=== PATIENT | female | born 1930 | race African-American/Black ===

== ENCOUNTER → 2016-07-19 | Outpatient (CLI) | payer MEDICARE, OTHER ==
[2014-05-02 11:41] VITALS: BP 173/90
[~2016-07-19] MED LIST: ACET1TAB29 PO; ALEN70TA5 PO; ASPI-482 PO; ATOR40TA59 PO; CARV3.122 PO; CHOL100013 PO; HYDR-971 PO; IOHEXOL 180 MG/ML 10 ML VIAL. ONE; LISI-334 PO; LORA10TA68 PO; MULT-658 PO; OMEG1CAP38 PO; methylPREDNISolone ACETATE 40 MG/ML VIAL. ONE; methylPREDNISolone ACETATE 80 MG/ML VIAL. ONE
--- NOTE | 2016-07-20 05:35 | PAIN ---
DATE OF SERVICE: 07/19/2016 INITIAL CONSULTATION CHIEF COMPLAINT: Low back and bilateral lower extremity pain. HISTORY OF PRESENT ILLNESS: This is an 85-year-old female who presents with history of pain since 1965, worse over the past 2 months, however. The patient reports in 1965 she fell in a bathtub and broke her pelvis, which was never completely treated appropriately and has caused pain with her for about 51 years now. The patient reports that over the past 2 months, however, she has had increased pain in the low back, bilateral lower extremities, mostly in the lateral posterior aspect of the gluteus, thighs and lower legs into the calves laterally and anteriorly as well as the anterior and medial thighs and onto the medial lower legs as well as below the knees. The patient reports it is somewhat worse on the right than the left, but present bilaterally and is constant, sharp, stabbing, throbbing and shooting. Tingling and numbness in the legs as well. Again, worse on the right than the left. Hard to get up out of a sitting position, worse in the morning, severe pain, better with medications. The patient has been taking hydrocodone about every 4-5 hours, which has been helping to a moderate extent, about 50% actually to decrease her pain. The patient reports no loss of motor function, but significant fatigability in the lower extremities, especially on the right side with activity. The patient reports she does better with sitting or lying down. It does not awaken her from sleep at night. She is sleeping well through the night. It does not affect her bowel or bladder control, but it does affect her ability to walk. She occasionally uses a walker, which she keeps at home generally when she is just getting out of bed in the morning, but she does not keep it with her the rest of the day and does not have one with her on her presentation today. The patient has had physical therapy as well as chiropractic treatment and doing exercise currently, all of which helped to a moderate extent and keeps her back mobile to a moderate degree. The patient reports disability rating from 0 to 10, 10 being the worst, as a 7 with family and home responsibilities, 3 with recreation and social activities, 6 with self-care and life support activities. PAST MEDICAL HISTORY: Significant for arthritis, hypertension, cataracts. PAST SURGICAL HISTORY: Previous surgeries include cataract extraction, ganglion cyst excision in both wrists and previous hysterectomy. CURRENT MEDICATIONS: Include hydrocodone, omega fish oil, vitamins, carvedilol, atorvastatin, lisinopril, Claritin, Centrum Silver, alendronate, daily baby aspirin, Coricidin. ALLERGIES: The patient has no known drug allergies. FAMILY HISTORY: Significant for no major medical problems or conditions that she is aware of. SOCIAL HISTORY: The patient does not smoke, does not use alcohol or caffeine. 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 REVIEW OF SYSTEMS: The patient's review of systems is positive for those items mentioned in the history of present illness. It is complete, full and well documented on the patient's chart. IMAGING STUDIES: The patient did have MRI scan of the lumbar spine, showing grade 1 approaching grade 2 anterior spondylolisthesis at L4-L5 and grade 1 anterior spondylolisthesis at L5-S1, severe spinal stenosis just below the L4-L5 intervertebral disc space with lateral recess stenosis bilaterally, severe bilateral L4-L5 neural foraminal compromise, multilevel lumbar facet degenerative changes. PHYSICAL EXAMINATION: VITAL SIGNS: Today, the patient's blood pressure is 147/105, pulse 83, respirations 18, temperature 97.7 degrees Fahrenheit, weight is 168 pounds, height is 4 feet 11 inches. GENERAL: The patient is awake, alert, oriented, appropriate, has very pleasant demeanor. HEENT: Shows normocephalic and atraumatic. Extraocular movements are intact and symmetrical. Oral cavity: Mucous membranes are moist and pink. Dentition is intact. NECK: Shows anterior throat supple without palpable lymphadenopathy noted. Swallow reflex is symmetrical. Neck shows good rotational motion both laterally greater than 45 degrees right and left as well as full extension and full forward flexion without significant difficulty or pain reported. CHEST: Shows normal on inspection. Breath sounds are clear to auscultation bilaterally. HEART: Shows S1 and S2 clear. No murmurs auscultated. ABDOMEN: Shows soft, obese, nontender, nondistended. No palpable organomegaly is noted. No rebound or guarding demonstrated. BACK: Shows spine grossly midline. Slight exaggeration of thoracic kyphosis, normal cervical lordotic curvature and normal lumbar lordotic curvature noted as well. With inspection, lumbar paraspinous musculature is symmetrical without evidence of atrophy or hypertrophy. On palpation, has normal muscle girth, firm but tender throughout the upper, middle and lower distribution of paraspinous muscles only diffusely, mostly in the lower distribution, slightly more tender than the upper or middle, but without radiation. No tenderness over the spinous processes. No tenderness over the sacrum or sacroiliac regions. The patient shows good rotational motion of the lumbar spine, both laterally, greater than 10 degrees right and left as well as extension greater than 10 degrees, forward flexion at 45 degrees without exacerbation of pain. EXTREMITIES: The patient's lower extremities showed deep tendon reflexes at 1+ in the patellar and tendo calcaneus tendons are equal. Motor exam is approximately 4 on a scale of 5, but is symmetrical with dorsiflexion, extension, quadriceps and hamstring flexion. The patient's peripheral pulses are 1+, posterior tibial and dorsalis pedis pulses. No peripheral edema is noted. No clubbing. No cyanosis. Lower extremities are warm and dry to touch, equal in color and appearance. Straight leg raising noted to be positive bilaterally at about 30-35 degrees with significant pain into the lateral and posterior aspect of the thigh as well as some in the anterior thigh on the right side, which is decreased but not relieved with knee flexion at this level. Gaenslen's and Rikki's maneuvers are grossly negative bilaterally with some minor pain reported with right external rotation of the hips, but only in the low back and not into the leg itself; left side is negative. The patient is able to stand but is very slow getting from a sitting to a standing position on her own. Again, she is not walking with any assistive devices, has a shuffling gait, not using any canes or walkers to ambulate, but requires a hand to hold while walking and holds onto the wall while she is walking in the hallway. IMPRESSION: 1. This is an 85-year-old female with long history of low back pain and bilateral lower extremity pain, worse over the past 2 months or so. 2. MRI scan as noted. 3. History of hypertension. 4. Arthritis. PLAN: Options were discussed with the patient including conservative medical management, physical therapy and interventional techniques. She would like to pursue interventional techniques. She is currently doing some therapy and exercises on her own. We discussed a lumbar epidural steroid injection using description as well as anatomical models to describe the procedure. Risks were then discussed including but not limited to bleeding, infection, possibility of epidural hematoma, subsequent neurologic compromise, dural punctures, headaches, spinal cord and/or nerve damage, side effects of steroid medication and poor results regarding pain control. The patient understands and wishes to proceed. The patient will return to clinic in approximately 2 weeks for followup. She was counseled on return appointment, activity level and side effects to be aware of. DIAGNOSES: Lumbar radiculopathy with lumbar degenerative disc disease and lumbar spinal stenosis. PROCEDURE: Lumbar epidural steroid injection in translaminar approach at the L4-L5 level using C-arm fluoroscopic guidance under sterile prep and drape using local anesthetic. MEDICATIONS INJECTED: Depo-Medrol 120 mg plus 10 mL of preservative-free normal saline and 2 mL Isovue for contrast. CONDITION AT DISCHARGE: Stable. The patient tolerated procedure well, had no complications. LORRAINE COTTO MD DR: TEODORA/nts JOB#: [id number] / [id number] ALICE Carpio MD
== END | disposition home or self-care (01) ==
LOC: PNCL 10:27
PROVIDERS: ATTEND Anesthesiology
DX: M51.16 Intervertebral disc disorders with radiculopathy, lumbar region (principal); M48.06 Spinal stenosis, lumbar region; M19.90 Unspecified osteoarthritis, unspecified site; I10 Essential (primary) hypertension
CPT/HCPCS: 62323; J1030; J1040

== ENCOUNTER → 2016-08-06 | Outpatient (CLI) | payer MEDICARE, OTHER ==
[2014-05-02 11:41] VITALS: BP 173/90
[~2016-08-06] MED LIST changes: -IOHEXOL 180 MG/ML 10 ML VIAL. ONE; -methylPREDNISolone ACETATE 40 MG/ML VIAL. ONE; -methylPREDNISolone ACETATE 80 MG/ML VIAL. ONE
--- NOTE | 2016-08-07 00:01 | PN ---
DATE: 08/06/2016 PROGRESS NOTE FOR PAIN CLINIC DIAGNOSES: Lumbar radiculopathy, lumbar degenerative disk disease and lumbar spinal stenosis. HISTORY OF PRESENT ILLNESS: The patient an 85-year-old female who returns for followup status post lumbar epidural steroid injection x 1. The patient reports near 100% improvement in her low back and bilateral lower extremities. The patient is very pleased with her progress. She is essentially pain free except for her right leg with some stiffness in the back of the leg only in the mornings and reports there is not pain ____ ache. The patient reports the pain as 0 on a scale of 10. Reports no new motor or sensory deficits, no new bowel or bladder incontinence or other complaints. She is very pleased with her activity toleration and very pleased with her response at this time. PHYSICAL EXAMINATION: VITAL SIGNS: Shows blood pressure 158/78, pulse 79, respirations 18, temperature 98.2 degrees Fahrenheit, height is 4 feet 11 inches, weight 167 pounds. GENERAL: The patient is awake, alert, oriented, appropriate, very pleasant demeanor. The patient accompanied by her son. HEENT: Shows normocephalic, atraumatic. Extraocular movements are intact and symmetrical. Oral cavity shows mucous membranes moist and pink. Dentition is intact. NECK: Shows anterior throat supple without palpable lymphadenopathy noted. Swallow reflex is symmetrical. Neck shows full rotational motion of the cervical spine without difficulty. CHEST: Shows normal on inspection. Breath sounds are clear to auscultation bilaterally. HEART: Shows S1 and S2 clear. ABDOMEN: Soft, nontender, nondistended. No palpable organomegaly. No rebound or guarding demonstrated. BACK: Shows spine grossly midline. Lumbar paraspinous musculature shows some mild tenderness with palpation, but only with diffuse palpation bilaterally in the lumbar distribution inferiorly without radiation, without asymmetry. The patient shows good rotation and motion of the lumbar spine, both laterally as well as extension and flexion without difficulty. EXTREMITIES: Lower extremities showed deep tendon reflexes 1+/4 in the patellar tendons. Motor exam is approximately 4 on a scale of 5, but equal and symmetrical with dorsiflexion, extension, quadriceps and hamstring flexion bilaterally. The patient is able to stand from a sitting position without any assistance today, uses ____ arm on the chair when getting up to support herself, very different from previous exam. Options were discussed with the patient. At this time, the patient's old chart was reviewed as her current medication regimen updated. Current review of systems updated today as well and we will hold on any further injections. The patient is doing much better. She would like to wait on any further injections. The patient was counseled as to activity levels as well as side effects to be aware of, will increase activity as tolerated and return to the clinic on an as needed basis at this time. LORRAINE COTTO MD DR: TEODORA/vineet JOB#: [id number] / [id number]
== END | disposition home or self-care (01) ==
LOC: PNCL 10:35
PROVIDERS: ATTEND Anesthesiology
DX: M51.16 Intervertebral disc disorders with radiculopathy, lumbar region (principal); M48.06 Spinal stenosis, lumbar region
CPT/HCPCS: G0463

== ENCOUNTER → 2016-08-23 | Outpatient (CLI) | payer MEDICARE, OTHER ==
[2014-05-02 11:41] VITALS: BP 173/90
[~2016-08-23] MED LIST changes: +IOHEXOL 180 MG/ML 10 ML VIAL. ONE; +methylPREDNISolone ACETATE 40 MG/ML VIAL. ONE; +methylPREDNISolone ACETATE 80 MG/ML VIAL. ONE
--- NOTE | 2016-08-24 01:53 | PAIN ---
DATE OF SERVICE: 08/23/2016 PROGRESS NOTE FOR PAIN CLINIC DIAGNOSES: Lumbar radiculopathy with lumbar degenerative disk disease and lumbar spinal stenosis. HISTORY OF PRESENT ILLNESS: The patient is an 85-year-old female who returns for followup status post lumbar epidural steroid injection x 1, did very well, near 100% improvement, we followed up on 08/06 and she was doing so well, she wanted to wait for any further injections and the pain is again returned now over the past few days, reports as a "heavy pain" in the low back and right leg, still able to function much better than she had previously and reports still about a 75% improvement overall. The patient reports no new motor or sensory deficits, no new bowel or bladder incontinence or other complaints. The patient reports pain in the right leg, lateral and anterior thigh, posterior thigh, medial lower leg and posterior lower leg as well as in the calf, rates as a 5 on a scale of 10 currently. PHYSICAL EXAMINATION: VITAL SIGNS: The patient's blood pressure is 115/76, pulse is 98, respirations 20, temperature is 97.9 degrees Fahrenheit. Height is 4 feet 11 inches, weight is 167 pounds. GENERAL: The patient is awake, alert, oriented, appropriate, very pleasant demeanor. HEENT: Head shows normocephalic, atraumatic. Extraocular movements are intact and symmetrical. Oral cavity shows mucous membranes moist and pink. Dentition is intact. NECK: Shows anterior throat supple without palpable lymphadenopathy noted. Swallow reflex is symmetrical. CHEST: Shows normal on inspection. Breath sounds clear to auscultation bilaterally. HEART: Shows S1 and S2 clear. No murmurs are auscultated. ABDOMEN: Soft, obese, nontender, nondistended. No palpable organomegaly is noted. No rebound or guarding demonstrated. BACK: Shows spine grossly in the midline. Slight exaggeration of thoracic kyphosis and mild flattening of lumbar lordotic curvature. Lumbar paraspinous muscle shows some mild tenderness with palpation, but only diffusely bilaterally in the paraspinous musculature without radiation. EXTREMITIES: Lower extremities showed deep tendon reflexes 1+ in the patellar and tendo calcaneus tendons. Motor exam is strong with approximately 4 on a scale of 5, but equal bilaterally. Options were discussed with the patient. The patient's old chart was reviewed as her current medication regimen updated. Current review of systems was updated today as well and we will proceed with a second lumbar epidural steroid injection today with fluoroscopic guidance. Risks were again discussed including, but not limited to bleeding, infection, possibility of epidural hematoma, subsequent neurologic compromise, dural puncture, headaches, spinal cord and/or nerve damage, side effects of steroid medication and poor results regarding pain control. The patient understands and wishes to proceed. The patient will return to clinic in approximately 2 weeks for followup, was counseled on return appointment, activity level and side effects to be aware of. DIAGNOSES: Lumbar radiculopathy with lumbar degenerative disk disease, lumbar spinal stenosis. PROCEDURE: Lumbar epidural steroid injection in translaminar approach at the L4-L5 level using C-arm fluoroscopic guidance under sterile prep and drape using local anesthetic. MEDICATION INJECTED: 120 mg of Depo-Medrol plus she 10 mL preservative-free normal saline and 2 mL of Isovue for contrast. CONDITION AT DISCHARGE: Stable. The patient tolerated the procedure well, had no complications. LORRAINE COTTO MD DR: TEODORA/vineet JOB#: [id number] / [id number]
== END | disposition home or self-care (01) ==
LOC: PNCL 10:39
PROVIDERS: ATTEND Anesthesiology
DX: M51.16 Intervertebral disc disorders with radiculopathy, lumbar region (principal); M48.06 Spinal stenosis, lumbar region
CPT/HCPCS: 62323; J1030; J1040

== ENCOUNTER → 2016-12-19 | Outpatient (CLI) | payer MEDICARE, OTHER ==
[2014-05-02 11:41] VITALS: BP 173/90
--- NOTE | 2016-12-19 12:14 | PAIN ---
DATE OF SERVICE: 12/19/2016 PROGRESS NOTE FOR PAIN CLINIC DIAGNOSES: Lumbar radiculopathy with lumbar degenerative disk disease and lumbar spinal stenosis. HISTORY OF PRESENT ILLNESS: The patient is an 86-year-old female who returns for followup status post lumbar epidural steroid injection x 2, last seen on 08/23/2016. The patient did very well with near 100% improvement until about 3 weeks ago. The patient reports the pain began to return in her low back, bilateral lower extremities, somewhat worse on the right hip, but present bilaterally in the low back, radiating to the posterior gluteus, lateral thigh, anterior thighs, again worse on the right than the left, but present bilaterally. It is anywhere from 5 to 7 on a scale of 10, currently a 5 on a scale of 10 today. The patient reports it as aching, sharp, tingling, stabbing as well, returning. 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 and this has been increasing the patient's pain as well with bending and lifting activities at home. The patient reports much better with sitting down or lying down. It does awaken her from sleep occasionally, only very rarely. She has to get out of bed or reposition which helps the pain. The patient reports otherwise no new motor or sensory deficits, no new bowel or bladder incontinence or other complaints. PHYSICAL EXAMINATION: VITAL SIGNS: The patient's blood pressure ____, pulse 87, respirations 18, temperature 97.5 degrees Fahrenheit. Height 4 feet 11 inches, weighs 174 pounds. GENERAL: The patient is awake, alert, oriented, appropriate, very pleasant demeanor. HEENT: Head is normocephalic, atraumatic. Extraocular movements are intact and symmetrical. Oral cavity: Mucous membranes moist and pink. Dentition is intact. NECK: Shows anterior throat supple without palpable lymphadenopathy noted. Swallow reflex is symmetrical. CHEST: Shows normal on inspection. Breath sounds are clear to auscultation bilaterally. HEART: Shows S1 and S2 clear. No murmurs auscultated. ABDOMEN: Obese, soft, nontender, nondistended. No palpable organomegaly. There is no rebound or guarding demonstrated. BACK: Shows spine grossly in the midline, slight exaggeration of thoracic kyphosis, mild flattening of lumbar lordotic curvature on inspection. Paraspinous musculature in the lumbar distribution shows symmetrical with palpation shows some moderate tenderness bilaterally, but only diffusely throughout the middle and lower distribution of paraspinous muscles, again without asymmetry, no tenderness over the spinous processes, sacrum or sacroiliac regions. The patient shows good rotation and motion of lumbar spine, both laterally greater than 10 degrees right and left as well as extension greater than 10 degrees, forward flexion 45 degrees without significant pain reported. EXTREMITIES: Lower extremities showed deep tendon reflexes 1+ in the patellar and tendo calcaneus tendons. Motor exam is approximately 4 on a scale of 5, but equal and symmetrical with dorsiflexion, extension, quadriceps and hamstring flexion. Peripheral pulses are 1+ posterior tibial and dorsalis pedis pulses. No peripheral edema is noted. No clubbing, no cyanosis. Lower extremities are warm and dry to touch, equal in color and appearance. Options were discussed with the patient at this time. The patient's old chart was reviewed as her current medication regimen updated. Current review of systems updated today as well. We will proceed with a third in the series of lumbar epidural steroid injection using C-arm fluoroscopic guidance. Risks were again discussed including, but not limited to bleeding, infection, possibility of epidural hematoma and subsequent neurologic compromise, dural puncture, headaches, spinal cord and/or nerve damage, side effects of steroid medication and poor results regarding pain control. The patient understands and wishes to proceed. The patient will return to the clinic in approximately 2 weeks for followup, was counseled on return appointment, activity level and side effects to be aware of. DIAGNOSIS: Lumbar radiculopathy with lumbar degenerative disk disease, lumbar spinal stenosis. PROCEDURE: Lumbar epidural steroid injection in translaminar approach at L4-L5 level using C-arm fluoroscopic guidance under sterile prep and drape using local anesthetic. MEDICATIONS INJECTED: A total 120 mg of Depo-Medrol plus 10 mL of preservative-free normal saline and 2 mL of Isovue for contrast agent. CONDITION ON DISCHARGE: Stable. The patient tolerated procedure well, had no complications. LORRAINE COTTO MD DR: ETODORA/vineet JOB#: [id number] / [id number]
== END | disposition home or self-care (01) ==
LOC: PNCL 09:44
PROVIDERS: ATTEND Anesthesiology
DX: M51.16 Intervertebral disc disorders with radiculopathy, lumbar region (principal); M48.06 Spinal stenosis, lumbar region
CPT/HCPCS: 62323; J1030; J1040

== ENCOUNTER 2017-05-05 09:08 | Emergency (ER) | payer MEDICARE, OTHER ==
[~2017-05-05] VITALS: Ht 149.9 cm; Wt 77.6 kg
[~2017-05-05 09:08] MED LIST changes: -IOHEXOL 180 MG/ML 10 ML VIAL. ONE; -methylPREDNISolone ACETATE 40 MG/ML VIAL. ONE; -methylPREDNISolone ACETATE 80 MG/ML VIAL. ONE
--- NOTE | 2017-05-05 09:57 | PHYS DOC ---
Past Medical History Past Medical History: High Cholesterol, Hypertension Past Surgical History: Hysterectomy, Other Additional Past Surgical Histo: Cataract surgery-bilateral,"I had another one yrs ago.I can't remember." Alcohol Use: None Drug Use: None Adult General Chief Complaint Chief Complaint: MECHANICAL FALL HPI HPI Patient is a 86 year old female who complains of pain after fall. 86-year-old female yesterday 3:30 PM sustained a fall. She does not think she lost consciousness. She slipped hit her head against the counter and then a chair. She did not have any focal weakness following. She does has a moderate headache. Currently she complains of pain to her head paraspinal in the neck region. Right and left shoulder. Right greater than left hip. And her back. She has chronic back pain. She has no focal weakness. She did not cut herself during the fall. Symptoms are constant and worsened with movement. Review of Systems Review of Systems Constitutional: Denies fever or chills Eyes: Denies change in visual acuity, redness, or eye pain HENT: Denies nasal congestion or sore throat Respiratory: Denies cough or shortness of breath Cardiovascular: No additional information not addressed in HPI GI: Denies abdominal pain, nausea, vomiting, bloody stools or diarrhea : Denies dysuria or hematuria Musculoskeletal: hpi Integument: Denies rash or skin lesions Neurologic: Denies headache, focal weakness or sensory changes Endocrine: Denies polyuria or polydipsia All other systems were reviewed and found to be within normal limits, except as documented in this note. Current Medications Current Medications Current Medications Medications (Trade) Dose Ordered Sig/[facility] Start Time Stop Time Status Last Admin Dose Admin Fentanyl Citrate (Fentanyl 2ml Vial) 25 mcg 1X ONCE 05/05/17 10:00 05/05/17 10:01 DC 05/05/17 10:06 25 MCG Ondansetron HCl (Zofran) 4 mg 1X ONCE 05/05/17 10:00 05/05/17 10:01 DC 05/05/17 10:05 4 MG Allergies Allergies Allergies Coded Allergies Type Severity Reaction Last Updated Verified No Known Drug Allergies 05/02/14 No Physical Exam Physical Exam Constitutional: Well developed, well nourished, no acute distress, non-toxic appearance. HENT: Normocephalic, atraumatic, bilateral external ears normal, oropharynx moist, no oral exudates, nose normal. Eyes: PERRLA, EOMI, conjunctiva normal, no discharge. Neck: No midline tenderness. Cardiovascular:Heart rate regular rhythm, no murmur Lungs & Thorax: Bilateral breath sounds clear to auscultation Abdomen: Bowel sounds normal, soft, no tenderness, no masses, no pulsatile masses. Skin: Warm, dry, no erythema, no rash. Back: No tenderness, no CVA tenderness. Extremities: Paraspinal tenderness to palpation, tender bilateral hip to movement, mild tenderess to left hand. Full ROM bilateral shoulders. No midline TLS tenderness. Neurologic: Alert and oriented X 3, normal motor function, normal sensory function, no focal deficits noted. Dorsiflexion of bilatereal toes normal Psychologic: Affect normal, judgement normal, mood normal. 1216: Of note: regarding xray of the hand: there is no deformity to the left 4th finger nor tenderness. Current Patient Data Vital Signs Vital Signs Date Time Temp Pulse Resp B/P (MAP) Pulse Ox O2 Delivery O2 Flow Rate FiO2 05/05/17 11:07 82 20 98 05/05/17 09:30 98.2 137/80 (99) Room Air 98.2 Lab Values Laboratory Tests Test 05/05/17 09:25 05/05/17 09:50 Urine Collection Type Void Urine Color Yellow Urine Clarity Clear Urine pH 5.5 Urine Specific Purchase 1.025 Urine Protein Negative mg/dL (NEG-TRACE) Urine Glucose (UA) Negative mg/dL (NEG) Urine Ketones (Stick) Trace mg/dL (NEG) Urine Blood Negative (NEG) Urine Nitrite Negative (NEG) Urine Bilirubin Negative (NEG) Urine Urobilinogen Dipstick 0.2 mg/dL (0.2 mg/dL) Urine Leukocyte Esterase Trace (NEG) Urine RBC 3-5 /HPF (0-2) Urine WBC 6-10 /HPF (0-4) Urine Squamous Epithelial Cells Mod /LPF Urine Bacteria Few /HPF (0-FEW) Urine Hyaline Casts Moderate /HPF Urine Mucus Marked /LPF White Blood Count 4.5 x10^3/uL (4.0-11.0) Red Blood Count 3.87 x10^6/uL (3.50-5.40) Hemoglobin 11.4 g/dL (12.0-15.5) L Hematocrit 34.7 % (36.0-47.0) L Mean Corpuscular Volume 90 fL (79-100) Mean Corpuscular Hemoglobin 29 pg (25-35) Mean Corpuscular Hemoglobin Concent 33 g/dL (31-37) Red Cell Distribution Width 14.8 % (11.5-14.5) H Platelet Count 216 x10^3/uL (140-400) Neutrophils (%) (Auto) 62 % (31-73) Lymphocytes (%) (Auto) 22 % (24-48) L Monocytes (%) (Auto) 12 % (0-9) H Eosinophils (%) (Auto) 3 % (0-3) Basophils (%) (Auto) 1 % (0-3) Neutrophils # (Auto) 2.8 x10^3uL (1.8-7.7) Lymphocytes # (Auto) 1.0 x10^3/uL (1.0-4.8) Monocytes # (Auto) 0.5 x10^3/uL (0.0-1.1) Eosinophils # (Auto) 0.1 x10^3/uL (0.0-0.7) Basophils # (Auto) 0.1 x10^3/uL (0.0-0.2) Sodium Level 143 mmol/L (136-145) Potassium Level 3.7 mmol/L (3.5-5.1) Chloride Level 105 mmol/L (98-107) Carbon Dioxide Level 27 mmol/L (21-32) Anion Gap 11 (6-14) Blood Urea Nitrogen 15 mg/dL (7-20) Creatinine 1.0 mg/dL (0.6-1.0) Estimated GFR (Cockcroft-Gault) 63.3 BUN/Creatinine Ratio 15 (6-20) Glucose Level 98 mg/dL (70-99) Calcium Level 8.6 mg/dL (8.5-10.1) Total Bilirubin 0.3 mg/dL (0.2-1.0) Aspartate Amino Transferase (AST) 16 U/L (15-37) Alanine Aminotransferase (ALT) 14 U/L (14-59) Alkaline Phosphatase 44 U/L (46-116) L Troponin I Quantitative < 0.017 ng/mL (0.000-0.055) Total Protein 7.2 g/dL (6.4-8.2) Albumin 3.2 g/dL (3.4-5.0) L Albumin/Globulin Ratio 0.8 (1.0-1.7) L Laboratory Tests 05/05/17 09:50 Laboratory Tests 05/05/17 09:50 EKG EKG []NSR with RSR', no ischemic changes, 1004. 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 Course & Med Decision Making Course & Med Decision Making Pertinent Labs and Imaging studies reviewed. (See chart for details) Patient has had an essentially negative workup. I have offered her admission to hospital for pain control and possible physical therapy consultation however she declines. The young man in the room with, her her nephew, says he will make sure she is fine at home return for any worsening symptoms Dx: contusions s/p fall. Dismissed in stable condition. Dragon Disclaimer Dragon Disclaimer This electronic medical record was generated, in whole or in part, using a voice recognition dictation system. Departure Departure Disposition: 01 HOME, SELF-CARE Condition: STABLE Referrals: ARLET LYNN MD (PCP) Patient Instructions: Contusion JORGE L GONZALEZ MD May 05, 2017 09:57
[2017-05-05] MEDS ORDERED: fentaNYL PF VIAL 100 MCG/2 ML VIAL IV ONE (10:00)
[2017-05-05] MEDS ORDERED: ONDANSETRON PF 4 MG/2 ML VIAL. IV ONE (10:00)
[2017-05-05 10:10] LABS: BASO # 0.1 x10^3/uL (0.0-0.2); BASO % 1 % (0-3); EOS % 3 % (0-3); HEMATOCRIT 34.7 % (36.0-47.0); HEMOGLOBIN 11.4 g/dL (12.0-15.5); LYMPH % 22 % (24-48); MEAN CORPUSCULAR HEMOGLOBIN 29 pg (25-35); MEAN CORPUSCULAR HGB CONC 33 g/dL (31-37); MEAN CORPUSCULAR VOLUME 90 fL (79-100); MONO % 12 % (0-9); NEUT % 62 % (31-73); PLATELET COUNT 216 x10^3/uL (140-400); RED BLOOD COUNT 3.87 x10^6/uL (3.50-5.40); RED CELL DISTRIBUTION WIDTH 14.8 % (11.5-14.5); WHITE BLOOD COUNT 4.5 x10^3/uL (4.0-11.0)
[2017-05-05 10:15] LABS: BILIRUBIN,URINE NEGATIVE (NEG); GLUCOSE,URINE NEGATIVE (NEG); NITRITE,URINE NEGATIVE (NEG); PH,URINE 5.5; PROTEIN,URINE NEGATIVE (NEG-TRACE); UROBILINOGEN,URINE 0.2 mg/dL (0.2 mg/dL)
[2017-05-05 10:18] LABS: CALCIUM 8.6 mg/dL (8.5-10.1); GFR 63.3; POTASSIUM 3.7 mmol/L (3.5-5.1)
[2017-05-05 10:23] LABS: SQUAMOUS EPITHELIAL CELL,UR MOD /LPF
[2017-05-05 10:24] LABS: ALBUMIN 3.2 g/dL (3.4-5.0); ALBUMIN/GLOBULIN RATIO 0.8 (1.0-1.7); TOTAL BILIRUBIN 0.3 mg/dL (0.2-1.0); TOTAL PROTEIN 7.2 g/dL (6.4-8.2)
[2017-05-05 10:26] LABS: BACTERIA,URINE FEW /HPF (0-FEW)
--- NOTE | 2017-05-05 10:59 | RAD ---
CT head and cervical spine without contrast 05/05/2017 Clinical indication: Head injury. Comparison: None. Technique: Multiple CT images of the head and cervical spine were obtained without contrast according to standard protocol. RS Compliance Statement: One or more of the following individualized dose reduction techniques were utilized for this examination: 1. Automated exposure control 2. Adjustment of the mA and/or kV according to patient size 3. Use of iterative reconstruction technique Head: Ventricles and subarachnoid spaces are normal in size and configuration. No midline shift or mass effect. The canchola-white matter interfaces are maintained. The basal cisterns are patent. Visualized mastoid air cells and paranasal sinuses are well aerated. Cervical spine: No evidence of acute cervical spine fracture or traumatic malalignment. There is grade 1 anterolisthesis C7 on T1. No predental space widening. The atlantoaxial articulation is maintained. There is multilevel cervical spondylosis with marginal osteophyte formation, endplate sclerosis and disc space narrowing to a mild degree at C3-C4, C4-C5, moderate degree at C5-C6 and mild at C6-C7. There is moderate spondylosis at T1-T2 with disc space narrowing, endplate sclerosis and subchondral cysts and marginal osteophyte formation. In combination with uncovertebral and facet hypertrophy, there is multilevel neural foraminal narrowing greatest to a moderate degree on the left at C4-C5. Prominent posterior disc osteophyte complex at C5-C6 resulting in mild spinal canal narrowing. The paraspinal soft tissues are unremarkable. There is bronchiectasis in the visualized right lung apex. Impression: Head: 1. No acute intracranial hemorrhage. Cervical spine: 1. No evidence of acute cervical spine fracture. 2. Multilevel cervical spondylosis, as detailed. 3. Grade 1 anterolisthesis C7-T1.
[2017-05-05 11:07] VITALS: BP 152/93
--- NOTE | 2017-05-05 11:26 | RAD ---
CT lumbar spine without contrast 05/05/2017 Clinical indication: Back injury with back pain. Comparison: MRI lumbar spine 05/03/2016. Technique: Multiple CT images of the lumbar spine were obtained without contrast according to standard protocol. RS Compliance Statement: One or more of the following individualized dose reduction techniques were utilized for this examination: 1. Automated exposure control 2. Adjustment of the mA and/or kV according to patient size 3. Use of iterative reconstruction technique Findings: Lumbar spine: There are 5 nonrib-bearing lumbar type vertebral bodies at the first considered L1. No evidence of acute lumbar spine fracture or traumatic malalignment. There is grade 2 anterolisthesis L4 on L5 measuring 8 mm and grade anterolisthesis L5 on S1 measuring 6 mm. There is grade 1 retrolisthesis of T12 on L1 measuring 3 mm. There is moderate disc space narrowing, endplate sclerosis and vacuum disc phenomenon at L4-L5 and moderate disc degeneration at L5-S1 with intervertebral disc calcification. There is moderate lower thoracic spondylosis with prominent anterior osteophytes which are only partially visualized. The paraspinal soft tissues are unremarkable. Partial visualization of a hiatal hernia. Segmental analysis: At T12-L1, retrolisthesis resulting in mild left neural foraminal narrowing. At L1-L2, concentric disc bulging and facet hypertrophy with no significant spinal canal or neural foraminal narrowing. At L2-L3, concentric disc bulging and facet hypertrophy with no segment spinal canal or neuroforaminal narrowing. At L3-L4, concentric disc bulging facet hypertrophy and ligamentum flavum thickening resulting in moderate right neural foraminal narrowing. At L4-L5, grade 2 anterolisthesis with unroofing of the dorsal disc, marked facet hypertrophy and ligamentum flavum thickening results in severe spinal and severe bilateral neural foraminal stenosis. At L5-S1, grade 1 anterolisthesis with unroofing of the dorsal disc and facet hypertrophy resulting in moderate bilateral neural foraminal stenosis. Impression: 1. No acute lumbar spine fracture. 2. Grade 2 anterolisthesis L4 on L5. 3. Multilevel lumbar spondylosis resulting in severe spinal canal stenosis at L4-L5. 4. Degenerative neural foraminal narrowing, greatest to severe degree bilaterally at L4-L5. 5. Additional areas of neural foraminal narrowing, as CT of the above.
--- NOTE | 2017-05-05 11:30 | RAD ---
CT pelvis without contrast 05/05/2017 Clinical indications: Fall, back and neck and pelvic pain. Comparison: CT abdomen and pelvis 11/19/2007. Technique: Multiple CT images of the pelvis were performed without contrast according to standard protocol. PQRS Compliance Statement: One or more of the following individualized dose reduction techniques were utilized for this examination: 1. Automated exposure control 2. Adjustment of the mA and/or kV according to patient size 3. Use of iterative reconstruction technique Findings: Visualized small large bowel loops of the abdomen are normal in caliber. No abdominal free fluid. Urinary bladder is mildly distended and unremarkable. Prior hysterectomy with the vaginal cuff unremarkable. There is asymmetric enlargement of the left adnexa with a 1.6 cm cyst series 2/image 35. There are scattered distal clonic diverticula without evidence of diverticulitis in the visualized portions. There are mild bilateral sacroiliac degenerative changes. Osteitis pubis is noted. No evidence of acute bony pelvic fracture or traumatic malalignment. There is multilevel lower lumbar spondylosis better detailed on same day lumbar spine. Impression: 1. No acute bony pelvic fracture. 2. Enlargement of the left adnexa with a 1.6 cm cyst, indeterminate. Nonemergent follow-up pelvic ultrasound is recommended.
--- NOTE | 2017-05-05 11:43 | RAD ---
3 view left hand 05/05/2017 Clinical indication: Fall with left hand pain. Comparison: None. Findings: No acute fracture. 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 There is moderate first CMC and STT osteoarthritis. There is mild angulation and ulnar subluxation at the fourth DIP. Impression: 1. Mild fourth DiP ulnar subluxation, which may be degenerative or traumatic. Clinical correlation is recommended. 2. Otherwise no acute osseous abnormality. 3. Severe second through fifth of the osteoarthritis.
--- NOTE | 2017-05-05 11:44 | RAD ---
Single view AP chest 05/05/2017 Clinical indication: Upper back and chest pain. Comparison: Single view chest 02/21/2010. Findings: Enlargement of the cardiac silhouette without pulmonary venous congestion. There are scattered areas of pleural-parenchymal scarring throughout both lungs. No pleural effusion, pneumothorax or new focal consolidation. Bilateral glenohumeral degenerative changes with prominent subchondral cyst. Impression: Mild cardiomegaly without jeff pulmonary edema.
--- NOTE | 2017-05-05 11:47 | RAD ---
3 views right and left shoulder 05/05/2017 Clinical indications: Right and left shoulder pain status post fall. Comparison: None. Findings: Right shoulder: No acute fracture or traumatic malalignment. Mild glenohumeral arthrosis with prominent subchondral cysts. There is subchondral cystic change and sclerosis at the greater tuberosity. Moderate right acromioclavicular degenerative changes. Left shoulder: No acute fracture or traumatic malalignment. Mild left glenohumeral arthrosis. There are prominent subchondral cysts and sclerosis at the greater tuberosity of the humeral head. Moderate left acromioclavicular degenerative changes. Impression: 1. No acute osseous abnormality. 2. 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
--- NOTE | 2017-05-05 13:18 | EKG ---
[facility] [address] [place] [address] Test Date: 2017-05-05 Test Time: 10:02:05 Pat Name: MAYNOR BECKER Department: Room: Gender: F [employer] Machine Operator: : [id number] Requested By: JORGE L GONZALEZ Order Number: [id number] Reading MD: Measurements Intervals [place] Rate: 82 P: 36 NJ: 178 QRS: 75 QRSD: 118 T: -1 QT: 420 QTc: 494 Interpretive Statements SINUS RHYTHM PROLONGED QT NO SPECIFIC ECG ABNORMALITIES RI6.01 No previous ECG available for comparison
== END 2017-05-05 12:13 | disposition home or self-care (01) ==
LOC: ER 09:08
DX: S09.90XA Unspecified injury of head, initial encounter (principal); M54.2 Cervicalgia; M25.511 Pain in right shoulder; M25.512 Pain in left shoulder; M25.552 Pain in left hip; G89.29 Other chronic pain; I10 Essential (primary) hypertension; E78.00 Pure hypercholesterolemia, unspecified; W01.190A Fall on same level from slipping, tripping and stumbling with subsequent striking against furniture, initial encounter; Z90.710 Acquired absence of both cervix and uterus; Y93.89 Activity, other specified; Y99.8 Other external cause status; Y92.89 Other specified places as the place of occurrence of the external cause
CPT/HCPCS: 36415; 70450; 71010; 72125; 72131; 72192; 73030; 73130; 80053; 81001; 84484; 85025; 87086; 93005; 96374; 96375; 99285; J2405; J3010

== ENCOUNTER → 2017-06-10 | Outpatient (CLI) | payer MEDICARE, OTHER | END | disposition home or self-care (01) | LOC: KCIC US 09:47 | DX: N83.292 Other ovarian cyst, left side (principal); Z78.0 Asymptomatic menopausal state; Z90.710 Acquired absence of both cervix and uterus | CPT/HCPCS: 76856 ==

== ENCOUNTER → 2017-09-18 | Outpatient (CLI) | payer MEDICARE, OTHER ==
[~2017-09-18] MED LIST changes: -ACET1TAB29 PO; -ALEN70TA5 PO; -ASPI-482 PO; -ATOR40TA59 PO; -CARV3.122 PO; -CHOL100013 PO; -HYDR-971 PO; +IOHEXOL 180 MG/ML 10 ML VIAL.; -LISI-334 PO; -LORA10TA68 PO; -MULT-658 PO; -OMEG1CAP38 PO; +methylPREDNISolone ACETATE 40 MG/ML VIAL.; +methylPREDNISolone ACETATE 80 MG/ML VIAL.
== END ==
LOC: PNCL 11:33
DX: M51.16 Intervertebral disc disorders with radiculopathy, lumbar region (principal); M48.061 Spinal stenosis, lumbar region without neurogenic claudication
CPT/HCPCS: 62323; J1030; J1040; Q9965

== ENCOUNTER 2017-09-24 13:10 | Emergency (ER) | payer MEDICARE, OTHER ==
[2017-09-24 15:03] LABS: ADD MAN DIFF? NO
[2017-09-24 15:05] LABS: BASO % 1 % (0-3); EOS # 0.1 x10^3/uL (0.0-0.7); EOS % 1 % (0-3); HEMATOCRIT 36.6 % (36.0-47.0); LYMPH # 1.2 x10^3/uL (1.0-4.8); LYMPH % 16 % (24-48); MEAN CORPUSCULAR HEMOGLOBIN 29 pg (25-35); MEAN CORPUSCULAR HGB CONC 33 g/dL (31-37); MEAN CORPUSCULAR VOLUME 88 fL (79-100); MONO # 0.7 x10^3/uL (0.0-1.1); MONO % 9 % (0-9); NEUT # 5.5 x10^3uL (1.8-7.7); NEUT % 73 % (31-73); PLATELET COUNT 242 x10^3/uL (140-400); RED BLOOD COUNT 4.17 x10^6/uL (3.50-5.40); RED CELL DISTRIBUTION WIDTH 14.9 % (11.5-14.5); WHITE BLOOD COUNT 7.5 x10^3/uL (4.0-11.0)
[2017-09-24 15:17] LABS: ANION GAP 6 (6-14); BLOOD UREA NITROGEN 19 mg/dL (7-20); BUN/CREATININE RATIO 19 (6-20); CALCIUM 8.7 mg/dL (8.5-10.1); CARBON DIOXIDE 29 mmol/L (21-32); CHLORIDE 106 mmol/L (98-107); GFR 63.3; GLUCOSE 106 mg/dL (70-99); SODIUM 141 mmol/L (136-145)
[2017-09-24 15:22] LABS: ALBUMIN 3.2 g/dL (3.4-5.0); ALBUMIN/GLOBULIN RATIO 0.9 (1.0-1.7); ALK PHOS 58 U/L (46-116); ALT (SGPT) 15 U/L (14-59); AST (SGOT) 10 U/L (15-37); TOTAL BILIRUBIN 0.3 mg/dL (0.2-1.0); TOTAL PROTEIN 6.9 g/dL (6.4-8.2)
[2017-09-24 15:25] LABS: TROPONINI < 0.017 ng/mL (0.000-0.055)
[2017-09-24 16:27] LABS: BILIRUBIN,URINE NEGATIVE (NEG); CLARITY,URINE CLEAR; COLOR,URINE YELLOW; GLUCOSE,URINE NEGATIVE (NEG); NITRITE,URINE NEGATIVE (NEG); PH,URINE 5.5; PROTEIN,URINE NEGATIVE (NEG-TRACE); UROBILINOGEN,URINE 0.2 mg/dL (0.2 mg/dL)
[2017-09-24 16:41] LABS: BACTERIA,URINE 0 /HPF (0-FEW); HYALINE CASTS, URINE FEW /HPF; SQUAMOUS EPITHELIAL CELL,UR FEW /LPF
== END 2017-09-24 17:26 | disposition home or self-care (01) ==
LOC: ER 13:10
DX: R53.1 Weakness (principal); R42 Dizziness and giddiness; E78.00 Pure hypercholesterolemia, unspecified; I10 Essential (primary) hypertension; Z90.710 Acquired absence of both cervix and uterus; Z91.048 Other nonmedicinal substance allergy status
CPT/HCPCS: 36415; 70450; 71046; 80053; 81001; 84484; 85025; 87086; 93005; 99285-25

== ENCOUNTER → 2017-12-20 | Outpatient (CLI) | payer MEDICARE, OTHER | END | disposition home or self-care (01) | LOC: ECHO 11:07 | DX: I08.2 Rheumatic disorders of both aortic and tricuspid valves (principal); I27.20 Pulmonary hypertension, unspecified; I10 Essential (primary) hypertension; R01.1 Cardiac murmur, unspecified | CPT/HCPCS: 93306 ==

== ENCOUNTER → 2018-01-17 | Outpatient (CLI) | payer MEDICARE, OTHER ==
[2017-09-24 17:11] VITALS: BP 163/83
[~2018-01-17] MED LIST changes: +ACET1TAB29 PO; +ALEN70TA5 PO; +ASPI-482 PO; +ATOR40TA59 PO; +CARV3.122 PO; +CHOL100013 PO; +HYDR-971 PO; -IOHEXOL 180 MG/ML 10 ML VIAL.; +IOHEXOL 180 MG/ML 10 ML VIAL. ONE; +LIDOCAINE 2% PF 2ML VIAL. ONE; +LISI-334 PO; +LORA10TA68 PO; +MULT-658 PO; +OMEG1CAP38 PO; -methylPREDNISolone ACETATE 40 MG/ML VIAL.; +methylPREDNISolone ACETATE 40 MG/ML VIAL. ONE; -methylPREDNISolone ACETATE 80 MG/ML VIAL.; +methylPREDNISolone ACETATE 80 MG/ML VIAL. ONE
--- NOTE | 2018-01-17 21:37 | PAIN ---
DATE OF SERVICE: 01/17/2018 PROGRESS NOTE FOR PAIN CLINIC DIAGNOSES: Lumbar radiculopathy with lumbar degenerative disk disease and lumbar spinal stenosis. HISTORY OF PRESENT ILLNESS: The patient is an 87-year-old female who returns for followup status post lumbar epidural steroid injection x 1, last seen 09/18/2017. The patient did very well with about 80% improvement. The patient reports the pain is returning now in the low back and in the bilateral lower extremities, mostly in the posterior lateral, anterior thighs, anterior medial thighs, medial lower legs bilaterally and worse with walking, standing, changing positions and better with sitting or lying down and does not awaken her from sleep at night. The patient reports she was initially able to increase her distance walking, able to return to household activities with much greater ease and comfort, traveling, getting in and out of the car with much greater ease and without significant disability. The patient reports the pain is returning now as described. She reports it as a 10 on a scale of 10 at its worst, 9 on average and 7 at its least. The patient reports it is cramping, aching, sharp, becoming more constant with time. The patient reports no new motor or sensory deficits and no new bowel or bladder incontinence. PHYSICAL EXAMINATION: VITAL SIGNS: The patient's blood pressure 149/105, pulse 94, respirations 18 and temperature 95.9 degrees Fahrenheit. Height is 4 feet 11 inches and weighs 173 pounds. GENERAL: The patient is awake, alert, oriented, appropriate and very pleasant demeanor. HEENT: Head shows normocephalic and atraumatic. Extraocular movements intact and symmetrical. Oral cavity: Mucous membranes moist and pink. Dentition is intact. NECK: Shows anterior throat supple without palpable lymphadenopathy noted. Swallow reflex symmetrical. CHEST: Shows normal on inspection. Breath sounds clear to auscultation bilaterally. HEART: Shows S1 and S2 clear. No murmurs auscultated. ABDOMEN: Soft, nontender and nondistended. No palpable organomegaly is noted. No rebound or guarding demonstrated. BACK: Shows spine grossly in the midline. Normal appearing thoracic kyphosis and some minor flattening of lumbar lordotic curvature. Lumbar paraspinous muscle shows symmetrical on inspection. On palpation shows some moderate tenderness but only diffusely in the low lumbar distribution without significant radiation or trigger points. The patient has good rotational motion of the lumbar spine, both laterally as well as extension and flexion without difficulty or pain reported. EXTREMITIES: The patient's lower extremities show deep tendon reflexes at 1+ in the patellar and tendo-calcaneus tendons. Motor exam is strong with approximately 4 on a scale of 5 but equal and symmetrical dorsiflexion, extension, quadriceps and hamstring flexion. Peripheral pulses are 1+ posterior tibia. No peripheral edema is noted. Options were discussed with the patient. The patient's old chart was reviewed as well as her current medication regimen updated. Current review of systems updated today as well. We will proceed with a lumbar epidural steroid injection today with a second in this series with fluoroscopic guidance. Risks were again discussed including, but not limited to bleeding, infection, possibility of epidural hematoma, subsequent neurologic compromise, dural puncture headache, spinal cord and/or nerve damage, side effects of steroid medication and poor results regarding pain control. The patient understands and wished to proceed. The patient will return to the clinic in approximately 2 weeks for followup, was counseled as to return appointment, activity level and side effects to be aware of. DIAGNOSES: Lumbar radiculopathy with lumbar degenerative disk disease and lumbar spinal stenosis. PROCEDURES: Lumbar epidural steroid injection, translaminar approach L4-L5 level using C-arm fluoroscopic guidance under sterile prep and drape using local anesthetic. MEDICATION INJECTED: A total of 120 mg Depo-Medrol plus 10 mL of preservative-free saline and 2 mL of Isovue for contrast. CONDITION AT DISCHARGE: Stable. The patient tolerated procedure well and had no complications. LORRAINE COTTO MD DR: TEODORA/vineet JOB#: [id number] / [id number]
== END | disposition home or self-care (01) ==
LOC: PNCL 11:26
PROVIDERS: ATTEND Anesthesiology
DX: M51.16 Intervertebral disc disorders with radiculopathy, lumbar region (principal); M48.061 Spinal stenosis, lumbar region without neurogenic claudication; Z88.8 Allergy status to other drugs, medicaments and biological substances
CPT/HCPCS: 62323; J1030; J1040; J2001; Q9965

== ENCOUNTER 2018-03-02 13:53 | Emergency (ER) | payer MEDICARE, OTHER ==
[~2018-03-02] VITALS: Ht 149.9 cm; Wt 77.6 kg
[2018-03-02 13:53] VITALS: BP 167/97
[~2018-03-02 13:53] MED LIST changes: -IOHEXOL 180 MG/ML 10 ML VIAL. ONE; -LIDOCAINE 2% PF 2ML VIAL. ONE; -methylPREDNISolone ACETATE 40 MG/ML VIAL. ONE; -methylPREDNISolone ACETATE 80 MG/ML VIAL. ONE
--- NOTE | 2018-03-02 14:05 | PHYS DOC ---
Past Medical History Past Medical History: High Cholesterol, Hypertension, Other Additional Past Medical Histor: CHRONIC BACK PAIN Past Surgical History: Hysterectomy, Other Additional Past Surgical Histo: Cataract surgery-bilateral,ABD SURG Alcohol Use: None Drug Use: None Adult General HPI HPI Patient is an 87-year-old female who presents with report of J-tube being clogged. Patient indicates that the nurse did not adequately dissolve her medication before she pushed it through J-tube and J-tube got clogged. She denies any abdominal pain, nausea or vomiting. She denies any other complaints. Review of Systems Review of Systems Constitutional: Denies fever or chills [] Respiratory: Denies cough or shortness of breath [] Cardiovascular: Denies chest pain[] GI: Denies abdominal pain, nausea, vomiting [] : Denies dysuria or hematuria [] Allergies Allergies Allergies Coded Allergies Type Severity Reaction Last Updated Verified No Known Medication Allergies Allergy Unknown 02/20/18 Yes alcohol Adverse Reaction Intermediate 02/18/18 Yes castor oil Adverse Reaction Intermediate Patient does not like castor oil 02/19 Yes Physical Exam Physical Exam Constitutional: Well developed, well nourished, no acute distress, non-toxic appearance. [] HENT: Normocephalic, atraumatic. [] Eyes: PERRLA, EOMI. [] Neck: Normal range of motion, no tenderness, supple, no stridor. [] Cardiovascular:Heart rate regular rhythm [] Lungs & Thorax: Very fine inspiratory and expiratory wheezes are noted on auscultation; otherwise good air movement is noted.[] Abdomen: Bowel sounds normal, soft. [] Skin: Warm, dry, no erythema, no rash. [] Current Patient Data Vital Signs Vital Signs Date Time Temp Pulse Resp B/P (MAP) Pulse Ox O2 Delivery O2 Flow Rate FiO2 03/02/18 13:53 99.5 94 16 167/97 (120) 94 Room Air 99.5 EKG EKG [] Radiology/Procedures Radiology/Procedures [] Course & Med Decision Making Course & Med Decision Making Pertinent Labs and Imaging studies reviewed. (See chart for details) Nursing staff worked on jejunostomy tube and was able to clear the blockage. Dragon Disclaimer Dragon Disclaimer This electronic medical record was generated, in whole or in part, using a voice recognition dictation system. Departure Departure Impression: Primary Impression: Jejunostomy malfunction Additional Impression: Encounter for jejunostomy care Disposition: 01 HOME, SELF-CARE Condition: STABLE Referrals: ALICE FOWLER MD (PCP) Patient Instructions: Care of a Feeding Tube, [id number] Problem Qualifiers CLEMENCIA ABDI Jr., DO Mar 02, 2018 14:05
== END 2018-03-02 15:34 | disposition home or self-care (01) ==
LOC: ER 13:53
DX: K94.13 Enterostomy malfunction (principal); E78.00 Pure hypercholesterolemia, unspecified; I10 Essential (primary) hypertension; G89.29 Other chronic pain; M54.9 Dorsalgia, unspecified; Z90.710 Acquired absence of both cervix and uterus; Z88.8 Allergy status to other drugs, medicaments and biological substances; Z91.018 Allergy to other foods
CPT/HCPCS: 99283

== ENCOUNTER → 2018-03-18 | Outpatient (CLI) | payer MEDICARE, OTHER ==
[2018-03-02 13:53] VITALS: BP 167/97
[~2018-03-18] MED LIST changes: +BARIUM SULFATE 40% (APPLE) 148 GM PWD. PO ONE
--- NOTE | 2018-03-18 16:11 | RAD ---
Indication: Dysphagia TECHNIQUE: Fluoroscopy-guided video swallow study with total fluoroscopy time of 1.2 minutes and multiple cine loops. COMPARISON: None FINDINGS: Penetration seen with thin liquids via straw and teaspoon. No penetration or aspiration seen with small sips by a cup. No penetration or aspiration seen with pureed. Solid consistencies were not tested. IMPRESSION: As above. Please see detailed notes by speech pathologist in patient's chart for full information. Electronically signed by: Crow Morin DO (03/18/2018 4:08 PM) [facility]
== END | disposition home or self-care (01) ==
LOC: RAD 13:59
PROVIDERS: ATTEND Surgery
DX: R13.19 Other dysphagia (principal); R11.10 Vomiting, unspecified
CPT/HCPCS: 74230; 92526; 92611; G8996; G8997; G8998